=== PATIENT | male | born 1980 | race Caucasian/White ===

== ENCOUNTER 2017-11-16 03:20 | Emergency (ER) | payer BC ==
[~2017-11-16] VITALS: Ht 175.3 cm; Wt 106.6 kg
--- NOTE | 2017-11-16 03:20 | NUR ---
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 PT TOOK 800MG MOTRIN AND TYLENOL ES 1GM X1 HOUR AGO. VSS NO ACUTE DISTRESS NOTED AT THIS TIME. SKIN WARM AND INTACT. WILL CONTINUE TO MONITOR FOR ANY CHANGES DURING THE SHIFT.
--- NOTE | 2017-11-16 03:21 | NUR ---
ER MD WANG AT BEDSIDE
[2017-11-16] MEDS ORDERED: CARISOPRODOL 350 MG TABLET ONE ×2 (03:42→03:49)
[2017-11-16] MEDS ORDERED: DEXAMETHASONE SOD PHOSPHATE 10 MG/ML VIAL ONE ×2 (03:42→03:49)
[2017-11-16] MEDS ORDERED: HYDROMORPHONE 1 MG/1 ML DISP.SYRIN ONE ×2 (03:43→03:50)
[2017-11-16] MEDS ORDERED: HYDROMORPHONE 1 MG/1 ML DISP.SYRIN IM ONE (04:00)
[2017-11-16] MEDS ORDERED: CARISOPRODOL 350 MG TABLET PO ONE (04:00)
[2017-11-16] MEDS ORDERED: DEXAMETHASONE SOD PHOSPHATE 4 MG/ML VIAL IM ONE (04:00)
[2017-11-16] MEDS ORDERED: ONDANSETRON 4 MG TAB.RAPDIS ONE (05:31)
--- NOTE | 2017-11-16 05:45 | NUR ---
D/C INSTRUCTIONS GIVEN TO PATIENT. PT UNDERSTOOD AND AGREED WITH LEVEL OF CARE. ATTEMPTING TO WALK PATIENT OUT TO CAR
[2017-11-16] MEDS ORDERED: ONDANSETRON 4 MG TAB.RAPDIS SL ONE (06:00)
[2017-11-16 06:02] VITALS: BP 135/84
== END 2017-11-16 06:02 | disposition home or self-care (01) ==
LOC: ER 03:22
DX: M54.42 Lumbago with sciatica, left side (principal); M54.41 Lumbago with sciatica, right side
CPT/HCPCS: 96372 ×2; 99284; A4606; J1100; J1170; Q0162; Z7610